=== PATIENT | male | born 1930 | race Caucasian/White ===

== ENCOUNTER → 2017-05-10 | Outpatient (CLI) | payer MEDICARE, OTHER ==
--- NOTE | 2017-05-10 23:19 | MRI ---
EXAM DATE: 05/10/2017 12:00 AM CDT. PROCEDURE: MR BRAIN WITHOUT IV CONTRAST, MR BRAIN ANGIOGRAPHY WITHOUT IV CONTRAST, MR BRAIN ANGIOGRAPHY WITHOUT IV CONTRAST. INDICATION: VASCULAR DEMENTIA WITHOUT BEHAVIORAL DISTURBANCE. COMPARISON: None. TECHNIQUE: Multiplanar multisequence images of the brain were acquired without the administration of intravenous contrast. Additionally, time of flight MRA images of the head and neck were obtained. 3-D postprocessing was acquired at an independent workstation. FINDINGS: MR head No acute infarct or intracranial hemorrhage. No mass, mass effect, or midline shift. Scattered subcortical, deep, and periventricular white matter hyperintensities compatible with chronic microvascular angiopathy. Similar changes are seen in the allen. Unremarkable midline structures including the pituitary, corpus callosum, and cerebellar tonsils. Mild generalized brain volume loss. Internal carotid and vertebrobasilar flow voids are identified. Mucosal disease most prominent in the sphenoid sinuses. Unremarkable orbits. Intact calvarium. MRA head No stenosis of the intracranial ICAs. No stenosis, occlusion, or aneurysm of the bilateral ACAs and MCAs. origin right DIRECTOR ONLINE MARKETING. No stenosis of the bilateral catcher helper. The vertebral basilar arteries demonstrate no stenosis. MRA NECK: Conventional arch anatomy. Normal course and caliber of the bilateral common carotid arteries and internal carotid arteries. The proximal ECAs are visualized and are unremarkable. No stenosis of the bilateral vertebral arteries. IMPRESSION: Mild generalized brain volume loss and chronic microvascular angiopathy. No significant stenosis of the major intracranial vessels. No significant stenosis of the major neck vessels. Electronically signed by: Luther Reyes MD 05/10/2017 11:18 PM CDT
--- NOTE | 2017-05-10 23:19 | MRI ---
EXAM DATE: 05/10/2017 12:00 AM CDT. PROCEDURE: MR BRAIN WITHOUT IV CONTRAST, MR BRAIN ANGIOGRAPHY WITHOUT IV CONTRAST, MR BRAIN ANGIOGRAPHY WITHOUT IV CONTRAST. INDICATION: VASCULAR DEMENTIA WITHOUT BEHAVIORAL DISTURBANCE. COMPARISON: None. TECHNIQUE: Multiplanar multisequence images of the brain were acquired without the administration of intravenous contrast. Additionally, time of flight MRA images of the head and neck were obtained. 3-D postprocessing was acquired at an independent workstation. FINDINGS: MR head No acute infarct or intracranial hemorrhage. No mass, mass effect, or midline shift. Scattered subcortical, deep, and periventricular white matter hyperintensities compatible with chronic microvascular angiopathy. Similar changes are seen in the allen. Unremarkable midline structures including the pituitary, corpus callosum, and cerebellar tonsils. Mild generalized brain volume loss. Internal carotid and vertebrobasilar flow voids are identified. Mucosal disease most prominent in the sphenoid sinuses. Unremarkable orbits. Intact calvarium. MRA head No stenosis of the intracranial ICAs. No stenosis, occlusion, or aneurysm of the bilateral ACAs and MCAs. origin right DRUM WORKER. No stenosis of the bilateral childhood development teacher. The vertebral basilar arteries demonstrate no stenosis. MRA NECK: Conventional arch anatomy. Normal course and caliber of the bilateral common carotid arteries and internal carotid arteries. The proximal ECAs are visualized and are unremarkable. No stenosis of the bilateral vertebral arteries. IMPRESSION: Mild generalized brain volume loss and chronic microvascular angiopathy. No significant stenosis of the major intracranial vessels. No significant stenosis of the major neck vessels. Electronically signed by: Luther Reyes MD 05/10/2017 11:18 PM CDT
--- NOTE | 2017-05-10 23:19 | MRI ---
EXAM DATE: 05/10/2017 12:00 AM CDT. PROCEDURE: MR BRAIN WITHOUT IV CONTRAST, MR BRAIN ANGIOGRAPHY WITHOUT IV CONTRAST, MR BRAIN ANGIOGRAPHY WITHOUT IV CONTRAST. INDICATION: VASCULAR DEMENTIA WITHOUT BEHAVIORAL DISTURBANCE. COMPARISON: None. TECHNIQUE: Multiplanar multisequence images of the brain were acquired without the administration of intravenous contrast. Additionally, time of flight MRA images of the head and neck were obtained. 3-D postprocessing was acquired at an independent workstation. FINDINGS: MR head No acute infarct or intracranial hemorrhage. No mass, mass effect, or midline shift. Scattered subcortical, deep, and periventricular white matter hyperintensities compatible with chronic microvascular angiopathy. Similar changes are seen in the allen. Unremarkable midline structures including the pituitary, corpus callosum, and cerebellar tonsils. Mild generalized brain volume loss. Internal carotid and vertebrobasilar flow voids are identified. Mucosal disease most prominent in the sphenoid sinuses. Unremarkable orbits. Intact calvarium. MRA head No stenosis of the intracranial ICAs. No stenosis, occlusion, or aneurysm of the bilateral ACAs and MCAs. origin right AMPOULE FILLER AND SEALER. No stenosis of the bilateral grant manager. The vertebral basilar arteries demonstrate no stenosis. MRA NECK: Conventional arch anatomy. Normal course and caliber of the bilateral common carotid arteries and internal carotid arteries. The proximal ECAs are visualized and are unremarkable. No stenosis of the bilateral vertebral arteries. IMPRESSION: Mild generalized brain volume loss and chronic microvascular angiopathy. No significant stenosis of the major intracranial vessels. No significant stenosis of the major neck vessels. Electronically signed by: Luther Reyes MD 05/10/2017 11:18 PM CDT
--- NOTE | 2017-05-11 11:02 | US ---
EXAM DESCRIPTION: Carotid Duplex CLINICAL HISTORY: STENOSIS COMPARISON: None Available. TECHNIQUE: Carotid Doppler ultrasound utilizing grayscale, color Doppler, and spectral pulse Doppler imaging. FINDINGS: On the right intimal thickening within a mildly tortuous common carotid artery with focal echogenic and partially calcified plaque at the origin of the external carotid artery is present with widely patent ICA origin. No significant stenosis is noted. Peak right CCA velocities are 94/10 cm/s. Peak ICA velocities distally are 86/16 cm/s. Antegrade flow in the external carotid and vertebral is present. On the left, intimal thickening and minimal plaque in the mildly tortuous common carotid artery is present. Shadowing plaque at the origin of the ICA is present. Peak CCA velocities are 100/13 cm/s peak ICA velocities are 102/21 cm/s. Antegrade flow in the external carotid and vertebral is evident. The ICA/CCA ratio is 0.9 on the right and 1.0 on the left. IMPRESSION: Mild atherosclerosis involving both carotid systems with more extensive shadowing plaque at the origin of the ICA but without evidence of hemodynamically significant stenosis on either side. Antegrade flow both vertebral arteries. Electronically signed by: Enrique Dillard MD 05/11/2017 11:01 AM CDT
== END | disposition home or self-care (01) ==
LOC: MRI 09:36
PROVIDERS: ATTEND Psychiatry & Neurology Neurology
DX: I66.01 Occlusion and stenosis of right middle cerebral artery (principal); F01.50 Vascular dementia, unspecified severity, without behavioral disturbance, psychotic disturbance, mood disturbance, and anxiety; G60.3 Idiopathic progressive neuropathy; I35.0 Nonrheumatic aortic (valve) stenosis